=== PATIENT | male | born 1985 | race Caucasian/White ===

== ENCOUNTER 2020-11-29 10:02 | Emergency (ER) | payer OTHER, SELFPAY ==
[2020-11-29 10:09] VITALS: BP 140/74; PULSE 100; RESP 16; TEMP 36.9; O2SAT 97
--- NOTE | 2020-11-29 10:42 | ED.URI ---
HPI - URI/Sore Throat General Chief Complaint: Upper Respiratory Infection Stated Complaint: SORE THROAT/RUNNY NOSE/COUGH/SNEEZE Source: patient and RN notes reviewed Limitations: no limitations History of Present Illness HPI Narrative: The vaccinated patient, non-smoker/nondrinker who is on several meds including for diabetes, presents with sore throat. Patient states he has 1/2-week history of cough and congestion associated with scratchy sore throat, and diarrhea x1 at onset. No fever measured, earache; no loss of taste/smell, CP, vomiting/diarrhea, S OB. Symptoms mild slightly worse upon awakening the morning Related Data Home Medications Medication Instructions Recorded Confirmed insulin glargine [Lantus Solostar SUBCUT 11/29/20 U-100 Insulin] insulin lispro SUBCUT 11/29/20 pravastatin 11/29/20 Allergies Allergy/AdvReac Type Severity Reaction Status Date / Time diphenhydramine Allergy Unknown Verified 10/02/12 09:35 Review of Systems Review of Systems: General/Constitutional: No weight loss,fever Eyes: N0: Redness,discharge Ears/Nose/Throat: No: Epistaxis,ear discharge Respiratory: Denies: Hemoptysis Gastrointestinal: No Vomiting, Bleeding-rectal Skin: No Lumps, eruption Neurologic: No Focal Weakness,Sz Hematologic: Denies: Petechiae/Purpura Psychiatric: No: Suicida ideationl All Other Systems: Reviewed and Negative PMFSH Family History Family History (Updated 10/02/12 @ 09:36 by DOCTOR UNKNOWN) Other Diabetes mellitus Family history of cardiovascular disease Hypertension Social History Social History Smoking status: Never smoker Comments At time of signature, agree with nursing past medical, surgical, social and family history. There is no relevant family history pertinent to the presenting complaint Exam Narrative: General Appearance: Well nourished/obese EYE: PERRLA, Conjunctiva clear Ears: Auditory canal normal, TM normal Nose: Rhinorrhea, Mucousal erythema Mouth/Throat: MM moist, Uvula midline, Pharyngeal erythema Neck: Supple, No adenopathy Respiratory: No respiratory distress, Breath sounds equal, Clear to auscultation Cardiovascular: RRR, No JVD Musculoskeletal: Non tender, Normal strength Skin: Warm, Dry Neurological: A&O x3, CN II-XII intact Psychiatric: Normal mood, Normal affect Course Vital Signs Vital signs: Vital Signs Temperature 98.4 F 09/12/21 10:09 Pulse Rate 100 11/29/20 10:09 Respiratory Rate 16 11/29/20 10:09 Blood Pressure 140/74 11/29/20 10:09 Pulse Oximetry 97 11/29/20 10:09 Temperature 98.4 F 11/29/20 10:09 Pulse Rate 100 11/29/20 10:09 Respiratory Rate 16 11/29/20 10:09 Blood Pressure 140/74 11/29/20 10:09 Pulse Oximetry 97 11/29/20 10:09 MDM - URI/Sore Throat Lab Data Labs: Lab Results 11/29/20 Range/Units 10:11 POC SARS CoV-2 Ag Negative (Negative) Discharge Plan Discharge Clinical Impression: Sinus headache, Acute sore throat Patient Disposition: Home, Self-Care Condition: Stable Instructions: Rhinosinusitis (ED) Additional Instructions: You may try OTC preparations like Flonase, cough syrups, fever meds [Motrin, Tylenol] Prescriptions: New azelastine 137 mcg (0.1 %) aerosol,spray 137 mcg NASAL Q12H Qty: 30 RF: 0 azithromycin 250 mg tablet See Rx Instructions .ROUTE .COMPLEX Qty: 6 RF: 0 codeine-guaifenesin 10-100 mg/5 mL liquid 7.5 ml PO Q6H PRN (Reason: cough) Qty: 118 RF: 0 No Action pravastatin 80 mg tablet RF: 0 insulin lispro 100 unit/mL insulin pen SUBCUT RF: 0 Lantus Solostar U-100 Insulin 100 unit/mL (3 mL) insulin pen SUBCUT RF: 0 Other Ambulatory Orders: SARS-CoV-2 RNA, Qual RT-PCR (Routine) Location: Determined by Patient Ordered By: Shan Kelley Follow-up/Referrals: Lakisha,LUPE Jimenes [Primary Care Provider] -
== END 2020-11-29 10:49 | disposition home or self-care (01) ==
PROVIDERS: Emergency Provider Emergency Medicine; PCP Nurse Practitioner Family
DX: J32.9 Chronic sinusitis, unspecified (principal); R51.9 Headache, unspecified; J02.9 Acute pharyngitis, unspecified; Z20.822 Contact with and (suspected) exposure to COVID-19
CPT/HCPCS: 87426; 99213; C9803; G0463

== ENCOUNTER 2022-03-06 10:03 | Emergency (ER) | payer OTHER, SELFPAY ==
--- NOTE | 2022-03-06 10:08 | ED.EAR ---
HPI - Ear Problem General Chief complaint: Ear Stated complaint: EARACHE Time Seen by Provider: 03/06/22 10:12 Source: patient Mode of arrival: ambulatory Limitations: no limitations History of Present Illness HPI Narrative: Mr. Rueda is a 37-year-old male patient presenting to the clinic today with complaints of ear pain since Monday. He reports no chills but has felt a little feverish. Also has slight runny nose/congestion. No known exposure to anybody with COVID, flu, strep Related Data Home Medications Medication Instructions Recorded Confirmed insulin glargine 100 unit/mL (3 subcut 11/29/20 mL) subcutaneous pen (Lantus Solostar U-100 Insulin) insulin lispro 100 unit/mL subcut 11/29/20 subcutaneous pen pravastatin 80 mg tablet 11/29/20 lisinopril 20 mg tablet mg 03/06/22 Allergies Allergy/AdvReac Type Severity Reaction Status Date / Time diphenhydramine Allergy Unknown Palpitation Verified 03/06/22 10:11 s Review of Systems Review of Systems: Pertinent positives per HPI. Patient denies any chills, rash, headache, visual changes, dizziness, sore throat, shortness of breath, chest pain, palpitations, nausea, vomiting, diarrhea, constipation, abdominal pain, or any urinary issues. [facility] Family History Family History Other Diabetes mellitus Family history of cardiovascular disease Hypertension Social History Social History Smoking status: Never smoker Comments At the time of my signature, I reviewed and agree with the nursing past medical, surgical, social, and family history. There is no relevant family history pertinent to the patient complaint. Exam Narrative: General: Well-developed, well nourished, in no apparent distress Head: Normocephalic, atraumatic Eyes: Pupils equally round and reactive to light bilaterally, EOM intact, sclera and conjunctive clear, no discharge, lids normal Ears: Right TM intact and dull, left TM intact, bulging, red, ear canals clear, no drainage, grossly hearing normal. Nose: Nares patent, clear nasal discharge, no inflammation, no sinus tenderness. Mouth: Oropharynx without lesions or masses, good dentition, MMM. Neck: Supple, trachea midline, no enlargement of anterior or posterior cervical nodes, no thyroid masses or goiter palpable. Cardio: Regular rate and rhythm, s1 and s2 normal, no murmur appreciated. Resp: Clear to auscultation bilaterally anteriorly and posteriorly, no rhonchi, rales, wheezing or rubs Course Course Emergency Course: Portions of this record may have been created with voice recognition software. Level of Care: Express Care Visit Vital Signs Vital signs: Vital signs reviewed Medical Decision Making MDM Narrative Medical decision making narrative: At the time of visit patient is resting comfortably on the exam table. I suspect patient has left-sided otitis media. Prescription for amoxicillin was sent to the pharmacy. Supportive measures were discussed with the patient he voiced understanding discharge instructions agrees to treatment plan. Differential Diagnosis Differential Diagnosis: Otitis media, otitis externa, upper respiratory infection, eustachian tube dysfunction, cerumen impaction Discharge Plan Discharge Clinical Impression: Otitis media Patient Disposition: Home, Self-Care Condition: Stable Instructions: Antibiotic Form, Ear Infection (ED) Additional Instructions: Take prescription medications only as prescribed-amoxicillin Increase fluids and stay well hydrated Tylenol/motrin for pain/fever Flonase and OTC antihistamines as directed Vicks vapor rub to open sinuses Sinus rinses for congestion Cepacol spray, cough drops, throat lozenges, warm tea with honey/lemon, gargle salt water to soothe throat BRAT diet for diarrhea Clear liquids x 24
[2022-03-06 10:12] VITALS: BP 148/85; PULSE 96; RESP 16; TEMP 37.5; O2SAT 100
== END 2022-03-06 10:16 | disposition home or self-care (01) ==
PROVIDERS: Emergency Provider Nurse Practitioner Family; PCP Nurse Practitioner Family
DX: H66.92 Otitis media, unspecified, left ear (principal); E78.00 Pure hypercholesterolemia, unspecified; E11.9 Type 2 diabetes mellitus without complications
CPT/HCPCS: 99213; G0463

== ENCOUNTER 2024-12-27 08:42 | Emergency (ER) | payer MEDICAID, SELFPAY ==
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
[2024-12-27 08:53] VITALS: BP 104/73; PULSE 70; RESP 16; TEMP 36.5; O2SAT 99
== END 2024-12-27 09:53 | disposition home or self-care (01) ==
PROVIDERS: Emergency Provider Nurse Practitioner Family; PCP Nurse Practitioner Family
DX: M94.0 Chondrocostal junction syndrome [Tietze] (principal); I10 Essential (primary) hypertension; E78.00 Pure hypercholesterolemia, unspecified; E11.9 Type 2 diabetes mellitus without complications; Z79.4 Long term (current) use of insulin
CPT/HCPCS: 71101; 99213; G0463